=== PATIENT | male | born 1960 | race Caucasian/White ===

== ENCOUNTER 2019-01-02 17:53 | Emergency (ER) | payer MEDICARE ==
[2019-01-02 18:06] VITALS: BP 115/66
--- NOTE | 2019-01-02 18:30 | ED Physician Documentation ---
History of Present Illness - Stated complaint Stated Complaint: FALL/BACK PX/IN WHEELCHAIR - Chief complaint Chief Complaint: General - History obtained from History obtained from: Patient - History of Present Illness Timing: How many days ago (3) Pain level max: 4 Pain level now: 2 - Additonal information Additional information: 58-year-old male states that he fell 3 to 4 days ago and has bruising to the left flank. No abdominal pain. No nausea or vomiting. No blood in the stool. No chest pain. No difficulty breathing. No head injury. No new neck or back pain. Has chronic back pain. No changes. No numbness or tingling. Review of Systems Constitutional: denies: Fever Respiratory: denies: Cough GI: denies: Abdominal Pain, Abdominal Swelling, Nausea, Vomiting, Diarrhea, Hematemesis, Bloody / black stool : denies: Hematuria PD PAST MEDICAL HISTORY - Past Medical History Cardiovascular: Hypertension Endocrine/Autoimmune: Type 2 diabetes - Past Surgical History Past Surgical History: Yes Cardiovascular: Coronary stent - Present Medications Home Medications: Ambulatory Orders Medication Instructions Recorded Confirmed Acetaminophen [Tylenol] 650 mg PO Q4HR PRN #0 tablet 12/27/15 Aspirin EC [Ecotrin] 325 mg PO DAILY #30 tablet 12/27/15 Atorvastatin [Lipitor] 80 mg PO QPM #30 tablet 12/27/15 Insulin Aspart [NovoLOG] 3 - 11 unit SUBQ 12/27/15 0800,1200,1700,2100 #3 pen Insulin Aspart [NovoLOG] 8 unit SUBQ TIDWM #3 pen 12/27/15 Insulin Glargine [Lantus Solostar] 25 unit SUBQ QPM #2 pen 12/27/15 Lisinopril [Zestril] 10 mg PO BID #30 tablet 12/27/15 Multivitamin [Theragran] 1 tab PO DAILYWM tablet 12/27/15 Omeprazole 20 mg PO DAILY #30 capsule. 12/27/15 - Allergies Allergies/Adverse Reactions: Allergies Allergy/AdvReac Type Severity Reaction Status Date / Time No Known Drug Allergies Allergy Verified 12/25/15 22:46 - Social History Does the pt smoke?: No Smoking Status: Never smoker Does the pt drink ETOH?: No Does the pt have substance abuse?: No - Immunizations Immunizations are current?: No Immunizations: TDAP >10years/unknown PD ED PE NORMAL - Vitals Vital signs reviewed: Yes - General General: Alert and oriented X 3, No acute distress, Well developed/nourished - HEENT HEENT: Atraumatic, PERRL, Moist mucous membranes - Neck Neck: Supple, no meningeal sign, No bony TTP - Cardiac Cardiac: RRR - Respiratory Respiratory: No respiratory distress, Clear bilaterally - Abdomen Abdomen: Normal bowel sounds, Soft, Non tender, Non distended - Back Back: No spinal TTP, Other (Ecchymosis to the left flank with a small hematoma) - Derm Derm: Warm and dry - Extremities Extremities: No deformity, No tenderness to palpate - Neuro Neuro: Alert and oriented X 3 - Psych Psych: Normal mood, Normal affect Results - Vitals Vitals: Vital Signs - 24 hr 01/02/19 18:04 Temperature 36.4 C L Heart Rate 77 Respiratory 20 Rate Blood Pressure 115/66 O2 Saturation 97 Oxygen O2 Source [With Activity] Room air O2 Source [With Activity] Room air O2 Source Room air PD MEDICAL DECISION MAKING - ED course Complexity details: considered differential, d/w patient ED course: Patient with a left flank contusion. No evidence of bony injury. No abdominal tenderness. no midline tenderness over the spine. no CVAT. Patient counseled regarding signs and symptoms for which I believe and urgent re-evaluation would be necessary. Patient with good understanding of and agreement to plan and is comfortable going home at this time This document was made in part using voice recognition software. While efforts are made to proofread this document, sound alike and grammatical errors may occur. Departure - Departure Disposition: 01 Home, Self Care Clinical Impression: Hematoma Condition: Good Instructions: ED Hematoma Follow-Up: your,doctor in 3 days [Other] Comments: Return if you worsen. You can apply ice to the area for 20 minutes at a time. Keeping pressure on the area will decrease the swelling as well. Discharge Date/Time: 01/02/19 18:38
== END 2019-01-02 18:38 | disposition home or self-care (01) ==
LOC: ED 17:53
DX: S30.1XXA Contusion of abdominal wall, initial encounter (principal); W01.0XXA Fall on same level from slipping, tripping and stumbling without subsequent striking against object, initial encounter; Y93.01 Activity, walking, marching and hiking; I10 Essential (primary) hypertension; E11.9 Type 2 diabetes mellitus without complications; Z79.4 Long term (current) use of insulin
CPT/HCPCS: 99281; 99282

== ENCOUNTER 2020-03-18 20:11 | Emergency (ER) | payer MEDICARE ==
[2020-03-18 20:39] LABS: BASOPHILS % (AUTO) 0.6 %; EOSINOPHILS # (AUTO) 0.2 10^3/uL (0.0-0.7); EOSINOPHILS % (AUTO) 3.1 %; HGB - HEMOGLOBIN 10.3 g/dL (14.0-18.0); LYMPHOCYTES # (AUTO) 0.8 10^3/uL (1.5-3.5); LYMPHOCYTES % (AUTO) 14.8 %; MEAN CORPUSCULAR HEMOGLOBIN 28.8 pg (27.0-31.0); MEAN CORPUSCULAR HGB CONC 32.9 g/dL (32.0-36.0); MEAN CORPUSCULAR VOLUME 87.4 fL (80.0-94.0); MEAN PLATELET VOLUME 8.4 fL (7.4-11.4); MONOCYTES # (AUTO) 0.7 10^3/uL (0.0-1.0); MONOCYTES % (AUTO) 12.4 %; NEUTROPHILS # (AUTO) 3.7 10^3/uL (1.5-6.6); NEUTROPHILS % (AUTO) 68.7 %; PLT - PLATELET COUNT 288 10^3/uL (130-450); RED BLOOD COUNT 3.58 10^6/uL (4.70-6.10); WHITE BLOOD COUNT 5.4 x10^3/uL (4.8-10.8)
[2020-03-18 20:47] LABS: CREATININE 1.9 mg/dL (0.6-1.2)
--- NOTE | 2020-03-18 20:57 | XRAY Report ---
PROCEDURE: Chest 1 View X-Ray INDICATIONS: Chest Pain TECHNIQUE: One view of the chest was acquired. COMPARISON: 12/26/2015 FINDINGS: Surgical changes and devices: Status post median sternotomy and CABG. Angie. Lungs and pleura: No pleural effusions or pneumothorax. Lungs are clear. Mediastinum: Mediastinal contours appear normal. Heart size is normal. Bones and chest wall: No suspicious bony lesions. Overlying soft tissues appear unremarkable. IMPRESSION: No acute cardiopulmonary abnormality. Reviewed by: Ba Roach on 03/18/2020 8:56 PM [facility] Approved by: Ba Roach on 03/18/2020 8:56 PM [facility] Station ID: [id number]
--- NOTE | 2020-03-18 21:26 | ED Physician Documentation ---
PD HPI CHEST PAIN - Stated complaint Stated Complaint: HIGH BP - Chief complaint Chief Complaint: Cardiac - History obtained from History obtained from: Patient - History of Present Illness Timing - onset: How many days ago (3) Timing - onset during: Rest Timing - duration: Days (3) Timing - details: Gradual onset, Still present Quality: Other (pain to both arms and pain down the back of both legs .) Radiation: Left upper extremity, Right upper extremity Improved by: Rest Worsened by: Exertion Associated symptoms: General Weakness. No: Shortness of air, Diaphoresis, Nausea, Vomiting, Feeling faint / dizzy, Palpitations, Cough Similar symptoms before: Has not had sx before Recently seen: Not recently seen - Additional information Additional information: 59-year-old diabetic male with a history of amputations and CVA has developed generalized weakness and pain to his upper and lower extremities cramping down the back of his legs and tightness to his arms bilaterally. He does not recall having these symptoms previously. He has had prior CVA he has a history of diabetes complicated by amputation and he has a history of spine disease he has had a number of procedures, uses a wheeled walker, has HTN and has not been taking his lisinopril for about 2.5 months. Review of Systems Constitutional: denies: Fever, Chills Eyes: denies: Decreased vision Ears: denies: Ear pain Nose: denies: Rhinorrhea / runny nose, Congestion Throat: denies: Sore throat Cardiac: denies: Chest pain / pressure, Palpitations Respiratory: denies: Dyspnea, Cough GI: reports: Constipation. denies: Abdominal Pain, Nausea, Vomiting : reports: Frequency. denies: Dysuria Skin: denies: Rash Musculoskeletal: reports: Extremity pain. denies: Neck pain, Back pain Neurologic: reports: Generalized weakness. denies: Focal weakness, Numbness Endocrine: reports: Polydypsia, Polyuria PD PAST MEDICAL HISTORY - Past Medical History Past Medical History: Yes Cardiovascular: Hypertension Endocrine/Autoimmune: Type 2 diabetes - Past Surgical History Past Surgical History: Yes Cardiovascular: Coronary stent - Present Medications Home Medications: Ambulatory Orders Medication Instructions Recorded Confirmed Acetaminophen [Tylenol] 650 mg PO Q4HR PRN #0 tablet 12/27/15 Aspirin EC [Ecotrin] 325 mg PO DAILY #30 tablet 12/27/15 Atorvastatin [Lipitor] 80 mg PO QPM #30 tablet 12/27/15 Insulin Aspart [NovoLOG] 3 - 11 unit SUBQ 12/27/15 0800,1200,1700,2100 #3 pen Insulin Aspart [NovoLOG] 8 unit SUBQ TIDWM #3 pen 12/27/15 Insulin Glargine [Lantus Solostar] 25 unit SUBQ QPM #2 pen 12/27/15 Multivitamin [Theragran] 1 tab PO DAILYWM tablet 12/27/15 Omeprazole 20 mg PO DAILY #30 capsule. 12/27/15 lisinopriL [Zestril] 10 mg PO BID #30 tablet 12/27/15 - Allergies Allergies/Adverse Reactions: Allergies Allergy/AdvReac Type Severity Reaction Status Date / Time oxycodone Allergy Mild Itching Verified 03/18/20 20:19 - Social History Does the pt smoke?: No Smoking Status: Never smoker Does the pt drink ETOH?: No Does the pt have substance abuse?: No - Immunizations Immunizations are current?: No Immunizations: TDAP >10years/unknown PD ED PE NORMAL - Vitals Vital signs reviewed: Yes (hypertensive ) - General General: Alert and oriented X 3, No acute distress, Well developed/nourished - HEENT HEENT: Atraumatic, PERRL, EOMI - Neck Neck: Supple, no meningeal sign, No bony TTP - Cardiac Cardiac: RRR, No murmur - Respiratory Respiratory: No respiratory distress, Clear bilaterally - Abdomen Abdomen: Normal bowel sounds, Soft, Non tender, Non distended, No organomegaly - Back Back: No CVA TTP, No spinal TTP - Derm Derm: Normal color, Warm and dry, No rash - Extremities Extremities: No deformity, No edema - Neuro Neuro: Alert and oriented X 3, emergency medical services coordinator 2-12 intact, No motor deficit, No sensory deficit, Normal speech Eye Opening: Spontaneous Motor: Obeys Commands Verbal: Oriented GCS Score: 15 - Psych Psych: Normal mood, Normal affect Results - Vitals Vitals: Vital Signs - 24 hr 03/18/20 03/18/20 03/18/20 20:13 20:36 20:44 Temperature 36.8 C Heart Rate 89 83 Respiratory 18 18 Rate Blood Pressure 176/83 H 187/92 H O2 Saturation 97 96 03/18/20 22:17 Temperature Heart Rate 80 Respiratory 18 Rate Blood Pressure 163/87 H O2 Saturation 98 Oxygen O2 Source [] Room air O2 Source [] Room air O2 Source Room air - EKG (time done) 2023 Rate: Rate (enter#) (81) Intervals: RBBB Ischemia: Q waves Compare to prior EKG: Changed from prior EKG (SPT 12-25-2015 RBBB is new, the q- waves are old, the tracing no longer meets crietera for LVH) Computer interpretation: Agree with computer - Labs Labs: Laboratory Tests 03/18/20 03/18/20 03/18/20 20:30 20:30 20:30 WBC 5.4 RBC 3.58 L Hgb 10.3 L Hct 31.3 L MCV 87.4 MCH 28.8 MCHC 32.9 RDW 13.0 Plt Count 288 MPV 8.4 Neut # (Auto) 3.7 Lymph # (Auto) 0.8 L Bourbon # (Auto) 0.7 Eos # (Auto) 0.2 Baso # (Auto) 0.0 Absolute Nucleated RBC 0.00 Nucleated RBC % 0.0 Sodium 133 L Potassium 4.9 Chloride 101 Carbon Dioxide 22 Anion Gap 10.0 BUN 39 H Creatinine 1.9 H Estimated GFR (MDRD) 36 L Glucose 127 H Calcium 9.0 Troponin I High Sens 9.9 03/18/20 22:38 WBC RBC Hgb Hct MCV MCH MCHC RDW Plt Count MPV Neut # (Auto) Lymph # (Auto) Bourbon # (Auto) Eos # (Auto) Baso # (Auto) Absolute Nucleated RBC Nucleated RBC % Sodium Potassium Chloride Carbon Dioxide Anion Gap BUN Creatinine Estimated GFR (MDRD) Glucose Calcium Troponin I High Sens 9.8 Procedures - IVC sono (time) 2136 Bedside IVC sono: IVC measures (cm) (0.81), IVC collapsed c insp (cm) (complete), Dehydration (est 2+ liter deficit) PD MEDICAL DECISION MAKING - ED course Complexity details: reviewed old records, reviewed results, re-evaluated patient, considered differential, d/w patient ED course: 59-year-old diabetic male presents to the emerge department with pain in the upper and lower extremities and he is found to be significantly dehydrated on interrogation the inferior vena cava. He is administered saline. Departure - Departure Disposition: 01 Home, Self Care Clinical Impression: Dehydration Condition: Stable Instructions: ED Dehydration Follow-Up: Your, doctor when you return home. [Other]
[2020-03-18] MEDS ORDERED: SODIUM CHLORIDE 0.9% 1,000 ML IV STA ×2 (21:39→22:12)
[2020-03-18 23:44] VITALS: BP 143/89
== END 2020-03-18 23:44 | disposition home or self-care (01) ==
LOC: ED 20:11
DX: E86.0 Dehydration (principal); M79.601 Pain in right arm; M79.602 Pain in left arm; M79.661 Pain in right lower leg; M79.662 Pain in left lower leg; I10 Essential (primary) hypertension; Z95.5 Presence of coronary angioplasty implant and graft; E11.9 Type 2 diabetes mellitus without complications; Z79.4 Long term (current) use of insulin; I45.10 Unspecified right bundle-branch block; I25.2 Old myocardial infarction
CPT/HCPCS: 36415; 71045; 80048; 84484; 85025; 93005; 96360; 96361; 99284

== ENCOUNTER 2023-11-01 13:18 | Outpatient (CLI) | payer MEDICARE ==
[2023-11-01 18:23] LABS: BASOPHILS # (AUTO) 0.1 10^3/uL (0.0-0.1); BASOPHILS % (AUTO) 1.2 %; EOSINOPHILS # (AUTO) 0.2 10^3/uL (0.0-0.7); EOSINOPHILS % (AUTO) 4.5 %; HCT - HEMATOCRIT 39.7 % (42.0-52.0); HGB - HEMOGLOBIN 12.7 g/dL (14.0-18.0); LYMPHOCYTES # (AUTO) 0.9 10^3/uL (1.5-3.5); LYMPHOCYTES % (AUTO) 21.8 %; MEAN CORPUSCULAR HEMOGLOBIN 26.9 pg (27.0-31.0); MEAN CORPUSCULAR VOLUME 84.1 fL (80.0-94.0); MEAN PLATELET VOLUME 9.3 fL (7.4-11.4); MONOCYTES # (AUTO) 0.3 10^3/uL (0.0-1.0); MONOCYTES % (AUTO) 6.9 %; NEUTROPHILS # (AUTO) 2.6 10^3/uL (1.5-6.6); NEUTROPHILS % (AUTO) 65.4 %; PLT - PLATELET COUNT 246 10^3/uL (130-450); RED BLOOD COUNT 4.72 10^6/uL (4.70-6.10); RED CELL DISTRIBUTION WIDTH 14.2 % (12.0-15.0)
[2023-11-01 18:49] LABS: ALBUMIN 4.4 g/dL (3.2-5.5); ALBUMIN/GLOBULIN RATIO 1.5 (1.0-2.2); ALKALINE PHOSPHATASE 93 IU/L (42-121); ALT ALANINE AMINOTRANSFERASE 13 IU/L (10-60); AST ASPARTATE AMINOTRANSFERASE 14 IU/L (10-42); BILIRUBIN,TOTAL 0.4 mg/dL (0.2-1.0); BUN - BLOOD UREA NITROGEN 50 mg/dL (6-20); CALCIUM 9.7 mg/dL (8.5-10.3); CARBON DIOXIDE - CO2 24 mmol/L (21-32); CHLORIDE 105 mmol/L (101-111); CHOL/HDL RATIO 6.3 (<5.0); CHOLESTEROL 246 mg/dL; CREATININE 2.5 mg/dL (0.6-1.3); GFR - MDRD 26 (>89); GLUCOSE 96 mg/dL (74-104); HDL CHOLESTEROL 39 mg/dL; LDL CHOLESTEROL,CALCULATED 165 mg/dL; LDL/HDL RATIO 4.2 (<3.6); SODIUM 136 mmol/L (135-145); TOTAL PROTEIN 7.3 g/dL (6.4-8.9); TRIGLYCERIDES 210 mg/dL (48-352); VLDL CHOLESTEROL 42 mg/dL
[2023-11-01 19:07] LABS: THYROID STIMULATING HORMONE 0.67 uIU/mL (0.34-5.60)
[2023-11-01 21:38] LABS: ESTIMATED AVERAGE GLUCOSE 131 mg/dL (70-100); HEMOGLOBIN A1c% 6.2 % (4.27-6.07)
== END 2023-11-01 13:19 | disposition home or self-care (01) ==
LOC: LAB.N 13:18
DX: E11.69 Type 2 diabetes mellitus with other specified complication (principal); Z12.5 Encounter for screening for malignant neoplasm of prostate; I10 Essential (primary) hypertension
CPT/HCPCS: 36415; 80053; 80061; 83036; 84443; 85025; G0103; 83721; 84153

== ENCOUNTER 2023-12-24 08:44 | Outpatient (CLI) | payer MEDICARE, MEDICAID ==
--- NOTE | 2023-12-24 09:50 | Sleep Patient Instructions ---
Sleep Center Visit Summary - Patient Visit Information Reason for Visit: Initial consult for evaluation of sleep disordered breathing and other sleep issues. - Patient Instructions Instructions Attached: Sleep Study, Sleep Study Home Monitor Additional Instructions: You will be completing a sleep study, either an in-lab polysomnography (PSG) or home sleep study (HST). You will follow-up in the sleep care office after the sleep study is completed to hear the results and talk about therapy, if needed. You will be called by our office staff to schedule this appointment, but you may contact us with any questions. - Clinic Information Contact: [facility] [address] [place] [id number] [email or web address] T: [phone]
--- NOTE | 2023-12-24 09:55 | SLEEP CARE CONSULTATION ---
Information from patient questionnaire entered by Sonido Fernandez. I have reviewed and concur with the information entered by Sonido Fernandez. This document represents the service I personally performed and the decisions made by me, Laura Arteaga ARNP. History of Present Illness Service Date and Time: 12/24/2023 0844 Reason for Visit: New patient Chief Complaint: reports: Insomnia, Unrefreshed sleep, Snoring, Excessive daytime sleepiness, Observed pauses in breathing, Fatigue, Frequent awakenings at night Date of Onset: 6+MONTHS Usual bedtime: 2297-3428 Time it takes to fall asleep: 2+HRS Snores at night: Yes Observed to quit breathing while asleep: Yes Number of times waking at night: 8+ Reasons for waking at night: reports: Snoring, Gasping for air, Bathroom. denies: Choking Toss, Turn, or Twitch while sleeping: Yes Recalls having dreams: Yes Usually gets out of bed at: 0700 Feels refreshed in the morning: No (unless he remembers dreaming) Morning headache: Yes (1 time a week) Sleepy or fatigued during the day: Yes Ever fallen asleep while driving: No (not currently driving) Takes day naps: Yes (daily; sometimes more than one; 1-2 hours on average) Dreams during day naps: Yes Prior sleep studies: No Additional HPI information: I had the pleasure of seeing JIN HANDLEY today regarding the possibility of him having a sleep disorder. His current complaints are unrefreshed sleep, snoring, excessive daytime sleepiness, observed pauses in breathing, fatigue and frequent night awakenings. His daughter has told him that she has seen him have trouble breathing during sleep. He says his throat gets very dry at night time. He has problems with staying asleep and going to sleep. He gets up for the bathroom a lot at night. He is very tired throughout the day. He says he has had several back surgeries and is in pain a lot. He says his leg muscles move a lot. He has had an amputation of the toes on his left foot. He states he has neuropathy in his hands and feet. He is diabetic with high blood pressure, history of stroke and congestive heart failure.He thinks his mother had sleep apnea and did use a machine "to go to sleep". - Parasomnia Symptoms Ever been unable to move upon waking from sleep: Yes Walks in sleep: No Talks in sleep: Yes Ever acted out dreams in sleep: Yes (sometimes "active dreaming", no arm movements) Ever felt weak in the knees when startled or emotional: Yes Bothered by creepy, crawly, restless sensations in legs: Yes Problems with memory or concentration: Yes (both) Subjective Initial [place] Sleepiness Scale score: 21 (12/24/23) Past Medical History Past Medical History: reports: Hypertension, Congestive Heart Failure, Diabetes, Stroke (2016), Arthritis, Other (neuropathy in hands and feet; left toes amputation; legs have muscle twitches; multiple back surgeries) Social History The patient's occupation is a RETIRED. Patient is Single and lives in [place]. Have you smoked in the past 12 months: No Cigarettes per day (20/pack): 20 Years of smokin Quit date: 2015 Smoking Pack Years: 6.0 Alcohol use: No Caffeine use: Yes Caffeine amount and frequency: 1-2 CUPS QD Family History Family history of sleep disordered breathing: Yes Family Hx Sleep Apnea: Mother: Snoring, Sleep apnea - Treated (not sure), Father: Snoring Allergies and Home Medications Known drug allergies: Yes (as listed) Drug allergies reviewed: Yes Home medication list reviewed: Yes (as listed) Allergy and home medication list: Allergies oxycodone Allergy (Mild, Verified 12/24/23 09:07) Itching still takes this medication, takes it benadryl. Home Medications Medication Instructions Recorded Confirmed Last Taken Type Acetaminophen [Tylenol] 650 mg PO Q4HR PRN #0 tablet 12/27/15 12/24/23 Unknown Rx Multivitamin [Theragran] 1 tab PO DAILYWM tablet 12/27/15 12/24/23 Unknown Rx Atorvastatin [Lipitor] 40 mg PO QPM 11/26/23 12/24/23 Unknown History Diclofenac Sodium 1% Gel [Voltaren 50 gm TOP DAILY PRN 11/26/23 12/24/23 Unknown History Gel] Insulin Glargine [Lantus Solostar] 17 unit SUBQ QPM 11/26/23 12/24/23 Unknown History Rivaroxaban [Xarelto] 2.5 mg PO DAILY 11/26/23 12/24/23 Unknown History Tamsulosin [Flomax] 0.4 mg PO DAILY 11/26/23 12/24/23 Unknown History hydroCHLOROthiazide [Hydrodiuril] 25 mg PO DAILY 11/26/23 12/24/23 Unknown History lisinopriL [Zestril] 10 mg PO DAILY 11/26/23 12/24/23 Unknown History Review of Systems Weight loss over past 5 years: 15 Cardiovascular: reports: high blood pressure, leg or foot swelling Respiratory: reports: shortness of breath, wheeze Gastrointestinal: reports: difficulty swallowing Urinary: reports: incontinence, frequency Neurological: reports: headaches, disorientation, gait or balance problems Psychiatric: reports: anxiety Ear/Nose/Throat: reports: dry mouth/throat. denies: tonsillectomy Endocrine: reports: sluggishness, excessive thirst, increased appetite, increased urination, unexplained weakness Musculoskeletal: reports: joint pain, neck pain, back pain, joint swelling, muscle pain or cramping, mobility problems Immunologic: reports: allergies to food or environment Physical Exam Vital signs obtained and entered by: SONIDO Tinoco MA Blood Pressure: 165/82 (LEFT ARM) Cuff size: regular Heart Rate: 75 O2 Saturation: 96 Height: 5 ft 7 in Weight: 206 lb Body Mass Index: 32.2 BMI Classification: Obese Neck circumference: 19.5 Nostrils: patent to airflow Mouth and throat: narrow oropharynx Soft palate: normal Hard palate: normal Uvula: normal Uvula visualization: 25% Mallampati Class III Tongue: enlarged in size with teeth valle on lateral edges Tonsils: 1+ Neck: normal w/o lymphadenopathy or thyromegaly Heart: regular rate and rhythm Lungs: clear bilaterally Impression and Plan 1. Suspected Obstructive Sleep Apnea-Hypopnea Syndrome, as suggested by a history of loud and irregular snoring, observed cessation of breath while asleep, gasping or choking in sleep, frequent awakening during the night, unrefreshed sleep, cognitive impairment, and excessive daytime sleepiness. Narrow oropharynx and obesity are common predisposing factors for obstructive sleep apnea-hypopnea syndrome. I recommend proceeding to polysomnography to confirm the diagnosis and to assess severity. If the patient has significant sleep disordered breathing, a manual CPAP titration study will also be performed to find the optimal treatment pressure. I informed the patient of what the sleep studies involve and after some discussion, obtained agreement to proceed. The pathophysiology of obstructive sleep apnea-hypopnea syndrome was discussed with the patient and health risks of cardiovascular and cerebrovascular disease if not treated. Risks of drowsy driving discussed in detail and patient advised to avoid long distance driving and to tobacco sample puller at the first sign of drowsiness. Patient agreed to plan. * Schedule polysomnography +- manual CPAP titration study and return in 1-2 weeks after the study to discuss result and initiate therapy. * Avoid long distance driving or driving when feeling sleepy. * Avoid alcohol, sedative and muscle relaxant around bedtime. * Attempt to lose weight. * Review instructions provided by trained office staff on how to prepare for the sleep study. * Return for follow-up after sleep study completed. Counseling Topics: Weight loss health impact Plan: PSG/HST and follow up Visit Type: In Office Time Spent with Patient (minutes): 36 Provider Statement: I spent 100% of the Face to Face Visit with the patient with greater than 50% spent counseling the patient and coordination of care.
[2023-12-24 10:03] VITALS: BP 165/82; O2SAT 96
== END 2023-12-24 08:45 | disposition home or self-care (01) ==
LOC: SC 08:44
PROVIDERS: ATTEND Nurse Practitioner Family
DX: G47.10 Hypersomnia, unspecified (principal); R06.83 Snoring; R06.81 Apnea, not elsewhere classified; G47.8 Other sleep disorders; R41.89 Other symptoms and signs involving cognitive functions and awareness; E66.9 Obesity, unspecified; Z68.32 Body mass index [BMI] 32.0-32.9, adult; Z87.891 Personal history of nicotine dependence
CPT/HCPCS: 99203; G0463; 99212

== ENCOUNTER 2024-01-14 08:00 | Outpatient (CLI) | payer MEDICARE, MEDICAID ==
[2024-01-14 18:12] LABS: BILIRUBIN,URINE NEGATIVE (NEGATIVE); GLUCOSE, URINE (UA) 100 mg/dL (NEGATIVE); KETONES,URINE (UA) NEGATIVE (NEGATIVE); LEUKOCYTE ESTERASE, URINE NEGATIVE (NEGATIVE); NITRITE,URINE NEGATIVE (NEGATIVE); OCCULT BLOOD,URINE TRACE-INTA (NEGATIVE); PH,URINE 5.5 PH (5.0-7.5); PROTEIN,URINE 100 mg/dL (NEGATIVE); UROBILINOGEN,URINE 0.2 (NORMAL) E.U./dL (NORMAL)
[2024-01-14 18:24] LABS: CLARITY,URINE CLEAR (CLEAR); RBC,URINE 0-5 /HPF (0-5); SQUAMOUS EPITHELIAL CELL,UR NONE SEEN (<= Few); WBC,URINE 0-3 /HPF (0-3)
[2024-01-14 18:25] LABS: BACTERIA,URINE None Seen /HPF (None Seen); MUCUS,URINE Few Strands
== END 2024-01-14 23:59 | disposition home or self-care (01) ==
LOC: LAB.WCP 08:00
DX: R30.0 Dysuria (principal)
CPT/HCPCS: 81001; 87086